=== PATIENT | female | born 1985 | race Caucasian/White ===

== ENCOUNTER 2018-10-17 18:32 | Emergency (ER) | payer BC ==
--- NOTE | 2018-10-17 19:00 | RAD ---
RADIOGRAPH CHEST 1 VIEW: Supine 10/17/18 HISTORY: 33-year-old female status post acute chest trauma, fall from horse. FINDINGS: There is no air space density or pulmonary edema. The lateral costophrenic angles are sharp. Supine positioning makes this study insensitive for pneumothorax detection. The cardiomediastinal silhouette is normal. IMPRESSION: No acute cardiopulmonary findings. neno [] POS: [facility]
--- NOTE | 2018-10-17 19:03 | CT ---
CT HEAD WITHOUT CONTRAST: 10/17/18 Multiple axial tomograms obtained through the head without IV enhancement. INDICATIONS: Head injury. Ventricles have normal size and position. No evidence of intracranial hemorrhage. No mass or edema. S inuses and mastoids appear aerated. IMPRESSION: No acute findings. POS: [facility]
--- NOTE | 2018-10-17 19:04 | CT ---
CT CERVICAL SPINE: 10/17/18 Multiple axial tomograms obtained through the cervical spine with multiplanar reconstructions. INDICATIONS: Fall from horse with injury to head and neck. Cervical vertebrae maintain normal height and alignment. Disc spaces are maintained. No evidence of f racture identified. IMPRESSION: No evidence of cervical spine fracture. POS: [facility]
[2018-10-17] MEDS ORDERED: Adacel (T-DAP) 0.5 ML SYRINGE ONE (19:10)
[2018-10-17 19:12] LABS: ALT (SGPT) 26 U/L (8-55); AST (SGOT) 32 U/L (5-34); Albumin 4.1 g/dL (3.5-5.0); Alcohol 216 mg/dL (Less than 10); Alkaline Phosphatase 59 U/L (40-150); Anion Gap 16 mmol/L (10-20); BUN (Urea Nitrogen) 12 mg/dL (7.0-18.7); Bilirubin, Total 0.2 mg/dL (0.2-1.2); Calc. Creatinine Clearance 0 mL/min (70-130); Calcium 8.4 mg/dL (7.8-10.44); Carbon Dioxide 16 mmol/L (22-29); Chloride 106 mmol/L (98-107); Estimated GFR-MDRD 87; Glucose 83 mg/dL (70-105); Potassium 3.3 mmol/L (3.5-5.1); Protein, Total 7.1 g/dL (6.0-8.3); Sodium 135 mmol/L (136-145)
[2018-10-17 19:16] LABS: #Basophils 0.1 thou/uL (0.0-0.2); #Lymphocytes 2.8 thou/uL (1.20-3.40); #Monocytes 0.8 thou/uL (0.11-0.59); #Neutrophils 9.7 thou/uL (1.40-6.50); %Basophils 0.5 % (0.0-1.0); %Eosinophils 0.3 % (0.0-10.0); %Lymphocytes 20.9 % (21.0-51.0); %Neutrophils 72.3 % (42.0-75.0); Hemoglobin 14.2 g/dL (12.0-16.0); Mean Corpuscular HGB CONC 34.6 g/dL (32.0-36.0); Mean Corpuscular Hemoglobin 33.6 pg (27.0-31.0); Mean Corpuscular Volume 97.1 fL (78.0-98.0); Mean Platelet Volume 6.8 fL (7.4-10.4); Platelet Count 298 thou/uL (130-400); RBC Distribution Width 11.6 % (11.5-14.5); Red Blood Cell (RBC) Count 4.24 mill/uL (4.20-5.40); White Blood Cell (WBC) Count 13.4 thou/uL (4.8-10.8)
[2018-10-17 19:25] LABS: PTT 27.2 SEC (22.9-36.1); Prothrombin Time 13.1 SEC (12.0-14.7)
[2018-10-17] MEDS ORDERED: Lidocaine 1% w/Epinephrine 1:100K 20 ML VIAL ONE (19:28)
[2018-10-17 19:42] LABS: BHCG - Serum Negative (NEGATIVE); Pregs Control Background? CLEAR/WHITE (CLR/WHITE); Pregs Control Bar Appear? YES (CONTROL BAR)
[2018-10-17 20:37] LABS: Bilirubin Negative (Negative); Blood, Urine Small (Negative); Clarity CLEAR (Clear); Glucose, Urine (Dipstick) Negative (Negative); Leukocyte Negative (Negative); Nitrite Negative (Negative); Protein, Urine (Dipstick) Negative (Neg-Trace); Specific Gravity, Urine 1.004 (1.002-1.036); Urobilinogen 0.2 mg/dL (0.2-1.0); pH, Urine 5.5 (5.0-9.0)
[2018-10-17 20:38] LABS: Bacteria/HPF None Seen HPF (None Seen); Hyaline Casts/LPF 0-3 HYALINE CAST LPF (0-3 Hyaline); RBC/HPF 0-3 HPF (0-3); Squamous Epithelial None Seen HPF (0-3); WBC/HPF None Seen HPF (0-3)
== END 2018-10-18 00:28 | disposition home or self-care (01) ==
LOC: ERS 18:32
DX: S06.0X9A Concussion with loss of consciousness of unspecified duration, initial encounter (principal); S01.01XA Laceration without foreign body of scalp, initial encounter; S13.4XXA Sprain of ligaments of cervical spine, initial encounter; K21.9 Gastro-esophageal reflux disease without esophagitis; V80.010A Animal-rider injured by fall from or being thrown from horse in noncollision accident, initial encounter
CPT/HCPCS: 12001; 36415; 70450; 71045; 72125; 80053; 80307; 81003; 81015; 84703; 85025; 85610; 85730; 90471; 90715; 94760; 96360; 96361; G0390; J2001